=== PATIENT | male | born 1990 | race Caucasian/White ===

== ENCOUNTER 2016-07-17 11:30 | Emergency (ER) | payer OTHER ==
[~2016-07-17] VITALS: Ht 167.6 cm; Wt 81.6 kg
[2016-07-17] MEDS ORDERED: GABA-282 PO (11:41)
[2016-07-17] MEDS ORDERED: DULO30CA PO (11:41)
[2016-07-17] MEDS ORDERED: RITA20TA PO (11:41)
[2016-07-17 12:52] LABS: BASO # 0.1 K/mm3 (0.0-0.2); BASO % 1.2 % (0.0-1.0); EOS # 0.3 K/mm3 (0.0-0.50); EOS % 5.8 % (0.0-3.0); LARGE UNSTAINED CELL # 0.1 K/mm3 (0.0-0.4); LARGE UNSTAINED CELL % 1.7 % (0.0-4.0); LYMPH # 1.8 K/mm3 (1.5-6.5); LYMPH % 28.7 % (24.0-44.0); MEAN CORPUSCULAR HEMOGLOBIN 28.5 pg (27.0-33.0); MEAN CORPUSCULAR HGB CONC 34.4 g/dl (32.0-36.5); MONO # 0.4 K/mm3 (0.0-0.8); MONO % 7.4 % (0.0-5.0); NEUTROPHILS # 3.3 K/mm3 (1.8-7.7); NEUTROPHILS % 55.3 % (36.0-66.0); PLATELET COUNT, AUTOMATED 271 k/mm3 (150-450); WHITE BLOOD COUNT 5.9 K/mm3 (4.0-10.0)
[2016-07-17 13:08] LABS: ANION GAP 3 MEQ/L (8-16); BLOOD UREA NITROGEN 15 MG/DL (7-18); CALCIUM LEVEL 9.9 MG/DL (8.5-10.1); CARBON DIOXIDE LEVEL 33 MEQ/L (21-32); CHLORIDE LEVEL 104 MEQ/L (98-107); CREATININE FOR GFR 0.94 MG/DL (0.70-1.30); GLOMERULAR FILTRATION RATE > 60.0 (>60); GLUCOSE, FASTING 99 MG/DL (70-105); SODIUM LEVEL 140 MEQ/L (136-145)
[2016-07-17 13:10] LABS: POTASSIUM SERUM 5.3 MEQ/L (3.5-5.1)
[2016-07-17 13:31] VITALS: BP 146/77
[2016-07-17] MEDS ORDERED: HYDR25OIN AD (13:33)
== END 2016-07-17 13:41 | disposition home or self-care (01) ==
LOC: M ED 13:06
DX: K64.8 Other hemorrhoids (principal); K64.4 Residual hemorrhoidal skin tags; Z79.899 Other long term (current) drug therapy; Z87.891 Personal history of nicotine dependence